=== PATIENT | female | born 1985 | race Caucasian/White ===

== ENCOUNTER 2020-06-11 20:45 | Emergency (ER) | payer OTHER, SELFPAY ==
[2020-06-11 21:32] VITALS: BP 112/54; PULSE 89; RESP 16; TEMP 37; O2SAT 98; BMI 19.5
--- NOTE | 2020-06-11 21:33 | ED.EAR ---
HPI - Ear Problem General Chief complaint: Ear Problems Stated complaint: EAR INFECTION Source: patient Mode of arrival: ambulatory Limitations: no limitations History of Present Illness HPI Narrative: 35-year-old female with no significant past medical history presents with sudden onset of left ear pain. Stated that she was at work, noted that her left ear kept popping, when she went home she tried irrigate her ear out and clean it out with a Q-tip. She does not describe any fevers, chills, sore throat, rhinorrhea, cough, chest pain or pressure, palpitations, shortness of breath, abdominal pain, abdominal tender, dysuria, hematuria, nausea, vomiting, diarrhea, constipation, or edema. MD Complaint: ear pain Location: left ear Duration: intermittent Severity: mild Relieving factors: nothing Discharge from ear: no Treatment prior to arrival: attempt at ear wax removal Related Data Allergies Allergy/AdvReac Type Severity Reaction Status Date / Time aloe Allergy Hives Verified 06/11/20 21:32 latex Allergy Rash Verified 06/11/20 21:32 Review of Systems Review of Systems: Constitutional: No Fever, No Chills ENT/Mouth: Positive left Ear Pain, No Hoarseness, No sore throat Eyes: No Eye Pain, No Swelling, No Redness, No Foreign Body Cardiovascular: No Chest Pain, No SOB Respiratory: No Cough, No Dyspnea Gastrointestinal: No Nausea, No Vomiting, No Diarrhea, No abdominal Pain Genitourinary: No Dysuria, No Hematuria Musculoskeletal: No joint pain, No Myalgias, No Joint Swelling Skin: No Skin lacerations, No rash Neuro: No Weakness, No Numbness, No Paresthesias, No Loss of Consciousness, No Dizziness, No Headache Psych: No Anxiety/Panic, No Depression Heme/Lymph: no easy bruising, no Lymphadenopathy Endocrine: No Polyuria, No Polydipsia Yes all other systems are reviewed and are negative [facility] Past Medical History Attestation statement: The following information was validated with the patient. Source: old records reviewed Medical History Cervical cancer Surgical History H/O tubal ligation Social History Social History Advance Directives: No Advance Directives Information Provided: Yes Physical Exam Vital Signs: Vital Signs: Last Vital Signs Temp 98.6 F 06/11/20 21:32 Pulse 89 06/11/20 21:32 Resp 16 06/11/20 21:32 BP 112/54 L 06/11/20 21:32 Pulse Ox 98 06/11/20 21:32 Body Mass Index 19.5 Appearance: Alert. Oriented X3. No acute distress. Eyes: Pupils equal, round and reactive to light. ENT: Pharynx normal. No tonsillar erythema or swelling noted. Bilateral tympanic membranes intact, no bulging or effusions noted. Neck: Normal inspection. Neck supple. CVS: Normal heart rate and rhythm. Pulses normal. Respiratory: No respiratory distress. Breath sounds normal. Abdomen: Soft and nontender. Skin: Skin warm and dry. Normal skin color. Normal skin turgor. Extremities: No lower extremity edema. Neuro: No motor deficit. No sensory deficit. Course Course Course Narrative: 35-year-old female presents with left ear pain. Tympanic membranes are normal, no pharyngeal findings. Will test for strep. Strep test is negative. Plan of care is to discharge home with Motrin. Detailed description with patient regarding antibiotic stewardship, and that she does not require antibiotics at this time. Patient disappointed but understands rationale. MDM - Ear Differential Diagnosis Differential diagnosis: Likely otitis externa, otitis media, foreign body in ear, ruptured TM and cerumen impaction Medical Records Attestation: I reviewed the patient's medical records. Discharge Plan Discharge Clinical Impression: Acute dysfunction of eustachian tube Patient Disposition: Home, Self-Care Instructions: Earache (ED) Additional Instructions: You were evaluated for left ear pain. Visual exam was normal, your strep test was negative. Please use Motrin as needed for pain management. Symptoms persist please follow-up with primary care physician for further evaluation. Thank you for choosing this emergency department for evaluation. Please follow-up with primary care physician as needed. Return to the emergency department for any new, concerning, or worsening symptoms. Interventions: ED Discharge Assessment Last Done: 06/11/20 23:29 Discharge Date/Time: 06/11/20 23:31
[2020-06-11] MEDS: Ibuprofen 600 MG TABLET PO (23:26)
== END 2020-06-11 23:31 | disposition home or self-care (01) ==
PROVIDERS: Emergency Provider Internal Medicine
DX: H69.92 Unspecified Eustachian tube disorder, left ear (principal); Z85.41 Personal history of malignant neoplasm of cervix uteri
CPT/HCPCS: 87071; 87880; 99283; 99284

== ENCOUNTER 2020-06-16 13:34 | Emergency (ER) | payer OTHER, SELFPAY ==
[2020-06-16 13:48] VITALS: BP 100/57; PULSE 78; RESP 18; TEMP 36.6; O2SAT 99; BMI 19.2
--- NOTE | 2020-06-16 14:05 | ED_ITS ---
HPI - Ear Problem General Chief complaint: Ear Problems Stated complaint: ear issues Time Seen by Provider: 06/16/20 14:04 Source: patient Mode of arrival: ambulatory Limitations: no limitations History of Present Illness HPI Narrative: Left ear pain ongoing for past 1 week felt like fullness for the past 1 week and today felt a pressure-like sensation throughout the day. States he has had this problem before a week ago she was in emergency room there was no infection she was given supportive care however symptoms continued. There is no fever rash or headache. No recent illness. MD Complaint: ear pain Location: left ear Duration: constant Severity: moderate Relieving factors: NDAIDs Exacerbating factors: nothing Discharge from ear: no Treatment prior to arrival: none Related Data Previous Rx's Medication Instructions Recorded amoxicillin 500 mg PO Q12H #20 tab 06/16/20 Allergies Allergy/AdvReac Type Severity Reaction Status Date / Time aloe Allergy Hives Verified 06/11/20 21:32 latex Allergy Rash Verified 06/11/20 21:32 Review of Systems Review of Systems: Constitutional: No Weight loss, No Fever, No Chills, No Night Sweats, No Fatigue, No Malaise ENT/Mouth: No Hearing loss, + Ear Pain, No Nasal Congestion, No Sinus Pain, No Hoarseness, No sore throat, No Rhinorrhea, No Swallowing Difficulty Eyes: No Eye Pain, No Swelling, No Redness, No Foreign Body, No Discharge, No Vision Changes Cardiovascular: No Chest Pain, No SOB, No Dyspnea on Exertion, No Orthopnea, No Edema, No Palpitations Respiratory: No Cough, No Sputum, No Wheezing, No Smoke Exposure, No Dyspnea Gastrointestinal: Negative Genitourinary:Neg Musculoskeletal: No joint pain, No Myalgias, No Joint Swelling Skin: No Skin Lesions, No rash Neuro: No Weakness, No Numbness, No Paresthesias, No Loss of Consciousness, No Dizziness, No Headache Psych: Negative Heme/Lymph: No Bruising, No Bleeding,No Lymphadenopathy Endocrine: No Polyuria, No Polydipsia, No Temperature Intolerance PMFSH Past Medical History Source: unable to obtain Medical History Cervical cancer Surgical History H/O tubal ligation Social History Social History Advance Directives: No Advance Directives Information Provided: Yes Physical Exam Vital Signs: Vital Signs: Last Vital Signs Temp 97.9 F 06/16/20 13:48 Pulse 78 06/16/20 13:48 Resp 18 06/16/20 13:48 BP 100/57 L 06/16/20 13:48 Pulse Ox 99 06/16/20 13:48 Body Mass Index 19.2 Reviewed Const: General: cooperative and healthy appearing; No acute distress or intoxicated appearing Nutritional Appearance: average body habitus Orientation/consciousness: patient oriented x3 HENMT: Head: Yes normal to inspection Ears: hearing grossly normal bilaterally and TM abnormal bulging, wth effusion, with fluid behind the TM, with loss of landmarks and other (No abnormality in the canal); not perforated General nose exam: Normal external nose present Eyes: General: appearance normal, both eyes and all related structures Visual Summers: normal visual summers by confrontation Neck: Neck: Yes normal visual inspection, No positive Brudzinski's sign, No positive Kernig's sign and No tender Thyroid: Thyroid normal Chest: Chest palpation & inspection: normal inspection of the chest Resp: Effort & Inspection: normal respiratory effort Cardio: Jugular venous distension: no JVD Skin: General skin exam: no rashes or lesions noted Neuro: General: patient oriented x3 Extrem: General: Yes normal to inspection Course Course Course Narrative: Well nontoxic appearing AP acute otitis media of the left ear. Start on amoxicillin, home care come return, follow instructions and precautions clear provided. Feels comfortable plan. Stable for discharge. Discharge Plan Discharge Clinical Impression: Otitis media Qualifiers: Otitis media type: serous Chronicity: acute Laterality: right Recurrence: non- recurrent Qualified Code(s): H65.01 - Acute serous otitis media, right ear Patient Disposition: Home, Self-Care Instructions: Ear Infection (ED) Additional Instructions: Take your medications as prescribed [id number] decongestants as discussed Return if any concerns or worse symptoms otherwise at the completion of your course of antibiotics follow-up with her primary doctor for recheck Thank you Prescriptions: New amoxicillin 500 mg tablet 500 mg PO Q12H Qty: 20 RF: 0 Referrals: Physician,Unknown [Primary Care Provider] - 1 week
== END 2020-06-16 14:25 | disposition home or self-care (01) ==
PROVIDERS: Emergency Provider Emergency Medicine
DX: H65.02 Acute serous otitis media, left ear (principal)
CPT/HCPCS: 99283

== ENCOUNTER 2021-02-14 12:41 | Emergency (ER) | payer OTHER, SELFPAY ==
--- NOTE | 2021-02-14 13:44 | ED.URI ---
HPI - URI/Sore Throat General Chief Complaint: Upper Respiratory Symptoms Stated Complaint: Body aches/fever/cough Time Seen by Provider: 02/14/21 13:43 Source: patient Mode of arrival: ambulatory Limitations: no limitations History of Present Illness HPI Narrative: 36 year old female past medical history significant for fibromyalgia presents to the emergency department with headache, subjective fevers and chills, cough, congestion, body aches, fatigue X 3 days. Patient tells me that last night her fever broke, and she has been improving ever since. Patient is not vaccinated against COVID. She socially smokes cigarettes, and smokes marijuana. Few people at her job are sick with COVID-19. Patient denies chest pain and shortness of breath. MD elicited complaint: fever, cough and nasal congestion Onset (ago): day(s) (3) Consistency: constant Severity: mild Able to tolerate fluids by mouth: Yes Exacerbating factors: nothing Relieving factors: nothing Context: sick contacts (Multiple sick contacts at work, fiance has had multiple sick contacts.) Associated symptoms: fever, chills, nasal congestion and cough Treatments prior to arrival: none Related Data Previous Rx's Medication Instructions Recorded amoxicillin 500 mg tablet 500 mg PO Q12H #20 tab 06/16/20 Allergies Allergy/AdvReac Type Severity Reaction Status Date / Time aloe Allergy Hives Verified 02/14/21 13:55 latex Allergy Rash Verified 02/14/21 13:55 Review of Systems Review of Systems: Constitutional : positive Fever, positive Chills, positive fatigue, positive Malaise ENT/Mouth : No sore throat, positive runny nose Eyes: No Discharge Cardiovascular : No Chest Pain, No SOB Respiratory : No Cough, No Sputum Gastrointestinal : No Nausea, No Vomiting, No Diarrhea Genitourinary : No Dysuria, No Urinary Frequency Musculoskeletal : positive Myalgia Skin : No rash Neuro : No Headache Yes all other systems are reviewed and are negative [facility] Past Medical History Attestation statement: The following information was validated with the patient. Source: old records reviewed and nursing notes reviewed Medical History Cervical cancer Surgical History H/O tubal ligation Social History Social History Patient : No Physical Exam Vital Signs: Vital Signs: Last Vital Signs Temp 98.0 F 02/14/21 13:55 Pulse 85 02/14/21 13:55 Resp 18 02/14/21 13:55 BP 99/55 L 02/14/21 13:55 Pulse Ox 99 02/14/21 13:55 BMI result Body Mass Index 21.9 Vital signs stable. Appearance: Alert.? Oriented X3.? No acute distress.? Head: Normocephalic, atraumatic, no step-offs or deformities Eyes: Pupils equal, round and reactive to light.? ENT: Pharynx normal.? Moist mucous membranes Neck: Normal inspection.? Neck supple.? CVS: Normal heart rate and rhythm.? Pulses normal.? Respiratory: No respiratory distress.? Breath sounds normal.? Abdomen: Soft and nontender.? Skin: Skin warm and dry.? Normal skin color.? Normal skin turgor.? Extremities: No lower extremity edema.? No calf ttp. 5/5 strength to bilateral upper and lower extremities Back: No midline tenderness, no C-spine tenderness, full range of motion, no CVA tenderness bilaterally Neuro: Oriented X 3.? No motor deficit.? No sensory deficit. Course Reevaluation(s) Reevaluation #1: Patient is COVID positive. Vital signs are stable. I feel comfortable discharge home. I have educated on proper quarantine I have given strict return precautions. I have advised her to follow-up with PCP or return with new or worsening symptoms. Time: 13:53 MDM - URI/Sore Throat MDM Narrative Medical decision making narrative: 1352 36 yo f pmhx fibromyalgia presents to the emergency department with headache, subjective fevers and chills, cough, congestion, body aches, fatigue X 3 days. Patient is not vaccinated against COVID-19. She smokes socially but smokes marijuana daily. Physical examination benign Plan at this time is to obtain a COVID test. Medical Records Attestation: I reviewed the patient's medical records. Lab Data Attestation: I reviewed the patient's lab results. Labs: Lab Results 02/14/21 Range/Units 13:18 COVID-19 ([facility]) Positive A (Negative) COVID-19 Clin Com See Note Critical Care Time Critical Care Time Critical Care Time: No Discharge Plan Discharge Clinical Impression: COVID-19 Patient Disposition: Home, Self-Care Instructions: COVID-19 (Coronavirus Disease 2019) (ED) Additional Instructions: Take your medications as prescribed. If you were prescribed antibiotics today, it is important that you take your medication to their entirety, do not skip any doses, do not finish them early. Today you tested positive for COVID-19. Take Ibuprofen or Tylenol as needed for fevers or body aches. Quarantine for 7 days and ensure you wear a mask. After 7 days you should wear a mask for 3 days after that. Practice social distancing and good hand hygiene. Drink plenty of fluids. Take ibuprofen every 6 hours, Tylenol every 4 hours as needed for fevers or body aches. Follow-up with your primary care provider this week. Return to the emergency department with new or worsening symptoms. In case of emergency call 911 You can purchase a pulse oximeter from your local pharmacy or grocery store, and monitor your oxygen saturation if it goes below 94% you should return to the emergency department for further evaluation. Prescriptions: No Action amoxicillin 500 mg tablet 500 mg PO Q12H Qty: 20 RF: 0 Referrals: Physician,Unknown J [Primary Care Provider] - 2 days Stand Alone Forms: Work/School Release
[2021-02-14 13:55] VITALS: BP 99/55; PULSE 85; RESP 18; TEMP 36.7; O2SAT 99; BMI 21.9
[2021-02-18 08:40] LABS: COVID-19 Test Positive (Negative)
== END 2021-02-14 16:02 | disposition home or self-care (01) ==
LOC: HO.ED 14:12
PROVIDERS: Emergency Provider Emergency Medicine
DX: U07.1 COVID-19 (principal)
CPT/HCPCS: 36415; 87635; 99282; 99283

== ENCOUNTER 2022-03-03 09:27 | Emergency (ER) | payer OTHER, SELFPAY ==
[2022-03-03 10:22] VITALS: BP 94/60; PULSE 94; RESP 18; TEMP 37.3; O2SAT 99; BMI 25.6
[2022-03-03 11:26] LABS: Influenza A PCR NEGATIVE (Negative); Influenza B PCR NEGATIVE (Negative); Resp Syncy Virus RNA Qual PCR NEGATIVE (Negative); SARS COV2 PCR INHOUSE POSITIVE (Negative)
--- NOTE | 2022-03-03 11:33 | ED_ITS ---
HPI - General Adult General Chief complaint: General Medical Stated complaint: Body aches/Weakness/Covid+? Time Seen by Provider: 03/03/22 11:32 Source: patient Mode of arrival: ambulatory Limitations: no limitations History of Present Illness HPI narrative: Patient is a 37 year old assigned female at with no reported medical history presenting to the emergency department today with body aches and a known COVID-19 exposure. Patient states that her boyfriend is COVID-19 positive and she is having body aches now. Patient denies any dizziness, lightheadedness, abdominal pain, nausea, vomiting, fever, chills, blurry vision, double vision, loss of vision, chest pain, difficulty breathing, shortness of breath, back pain, night sweats, pain with urination, increased urinary frequency, increased urinary urgency, blood in her urine or stool, syncope or a near syncopal episode, recent trauma or falls, bowel incontinence, bladder incontinence, bowel retention, bladder retention, or any other complaints at this time. Onset (ago): day(s) Severity: mild Severity scale (1-10): 2 Relieving factors: none Exacerbating factors: none Treatments prior to arrival: none Related Data Previous Rx's Medication Instructions Recorded amoxicillin 500 mg tablet 500 mg PO Q12H #20 tabs 06/16/20 ibuprofen 600 mg tablet 600 mg PO Q8H PRN pain #20 tabs 02/15/21 ibuprofen 800 mg tablet 800 mg PO Q8H #30 tabs 03/03/22 Allergies Allergy/AdvReac Type Severity Reaction Status Date / Time latex Allergy Intermediate Rash Verified 03/03/22 10:21 aloe Allergy Mild Hives Verified 03/03/22 10:21 Review of Systems Constitutional: Constitutional: Reports no additional constitutional complaints, Reports body ache(s), Denies chills, Denies fever(s) and Denies night sweats Eyes: Eyes: Reports no additional eye complaints, Denies blurry vision, Denies change in vision, Denies diplopia, Denies eye discharge, Denies loss of vision and Denies eye pain ENT: Denies dizziness Cardiovascular: Cardiovascular: Reports no additional cardiovascular complaints, Denies chest pain, Denies lightheadedness, Denies Loss of Consciousness and Denies dyspnea Respiratory: Respiratory: Reports no additional respiratory complaints and Denies dyspnea Gastrointestinal: Gastrointestinal: Reports no additional gastrointestinal complaints, Denies abdominal pain, Denies melena, Denies hematochezia, Denies change in bowel habits and Denies change in stool character Genitourinary: Genitourinary: Denies hematuria, Denies urinary frequency, Denies dysuria, Denies urinary incontinence, Denies urinary hesitancy and Denies urinary urgency Musculoskeletal: Musculoskeletal: Reports no additional musculoskeletal complaints, Denies numbness and Denies tingling Neurologic: Denies dizziness, Denies loss of vision, Denies numbness and Denies tingling Psychiatric: Psychiatric: Reports no additional psychiatric complaints Endocrine: Endocrine: Reports no additional endocrine complaints Hematologic/Lymphatic: Hematologic/Lymphatic: Reports no additional hematologic/lymphatic complaints Allergic/Immunologic: Allergic/Immunologic: Reports no additional allergic/immunologic complaints [facility] Past Medical History Attestation statement: The following information was validated with the patient. Source: old records reviewed and nursing notes reviewed Medical History Cervical cancer Surgical History H/O tubal ligation Social History Social History Alcohol intake: current Alcohol intake frequency: holidays/special occasions only Smoked in Last 30 Days: No Advance Directives: No Advance Directives Information Provided: No Patient : No Physical Exam ED Vital Signs: Vital Signs - 24 hr 03/03/22 10:22 03/03/22 11:52 Temperature 99.2 F 98.9 F Pulse Rate 94 90 Respiratory Rate 18 18 Blood Pressure 94/60 100/58 L Pulse Oximetry 99 99 Oxygen Delivery Method Room Air BMI result Body Mass Index 25.6 Const General: cooperative, no acute distress, alert and awake Nutritional Appearance: well nourished Orientation/consciousness: patient oriented x3 Limitations: no limitations HENMT Head: Yes normal to inspection and Yes atraumatic Ears: hearing grossly normal bilaterally and external ears normal General nose exam: Normal external nose present, no nasal discharge noted and no epistaxis Face and sinus: Yes normal facial exam, No abrasion and No laceration Mouth: Normal oral and palatal mucosa present, no drooling and no muffled voice Eyes General: appearance normal, both eyes and all related structures Periorbital: periorbital findings normal Eyelids: Yes eyelids normal Conjunctivae: conjunctivae normal Pupils: Equal, round and reactive pupils present EOM: EOMs intact bilaterally Neck Neck: Yes normal visual inspection, Yes full ROM and Yes no lymphadenopathy Chest Chest palpation & inspection: normal inspection of the chest Resp Effort & Inspection: normal respiratory effort and able to speak in complete sentences Auscultation: clear to auscultation bilaterally Cardio Rate: regular rate Rhythm: regular rhythm GI Inspection: Yes normal to inspection Palpation (GI): Soft to palpation, not firm, nontender, no guarding and not rigid Neuro General: patient oriented x3 and moves all extremities Cranial nerves: Yes Equal, round and reactive pupils present Cognition (Neuro): normal cognition Motor exam (neuro): 5/5 motor strength present throughout Sensory Exam: Normal double simultaneous stimulation for sensation Coordination: [id number] test normal Extrem General: Yes normal to inspection, Yes full ROM and Yes capillary refill normal Psych Appearance: grossly normal Mental Status: mental status grossly normal Affect: normal affect Attitude: cooperative Thought process: Normal thought process present Thought content: Normal thought content present Insight: Good insight present (Psych) Medical Decision Making Medical Decision Making [facility] Narrative: Patient is a 37 year old assigned female at with no reported medical history presenting to the emergency department today with body aches. Patient's physical exam was unremarkable. Patient's COVID-19 test was positive. I explained my physical exam findings as well as all test results to the patient. I answered all questions asked by the patient. I stressed the importance of the patient taking her medication as prescribed. I stressed the importance of the patient following up with her primary care provider. I stressed the importance of the patient returning to the emergency department immediately if her symptoms were to worsen or if she were to develop any dizziness, shortness of breath, difficulty breathing, chest pain, blurry vision, loss of vision, nausea, vomiting, abdominal pain, fever, chills, back pain, or any other complaints. Patient verbalized agreement and understanding with this treatment plan and discharge. Differential Diagnosis Differential Diagnoses: The differential diagnosis associated with the presentation includes COVID-19 Lab Data [facility] Lab Attestation statement: I reviewed the patient's lab results. Labs: Lab Results 03/03/22 Range/Units 10:37 Influenza Type A (PCR) NEGATIVE (Negative) Influenza Type B (PCR) NEGATIVE (Negative) RSV RNA Qual (PCR) NEGATIVE (Negative) SARS-CoV-2 RNA (RT-PCR) POSITIVE A (Negative) Discharge Plan Discharge Clinical Impression: COVID-19 Patient Disposition: Home, Self-Care Instructions: COVID-19 (Coronavirus Disease 2019) (ED) Additional Instructions: Follow up with your primary care provider. Return to the emergency department immediately if your symptoms worsen or if you develop any dizziness, shortness of breath, difficulty breathing, chest pain, blurry vision, loss of vision, nausea, vomiting, abdominal pain, fever, chills, back pain, or any other complaints. Prescriptions: New ibuprofen 800 mg tablet 800 mg PO Q8H Qty: 30 0RF No Action amoxicillin 500 mg tablet 500 mg PO Q12H Qty: 20 0RF ibuprofen 600 mg tablet 600 mg PO Q8H PRN (Reason: pain) Qty: 20 0RF Referrals: [facility] [place] Family Medicine [Provider Group] (Call to establish and follow up with a primary care provider. If you already have a primary care provider, please follow up with them. ) [facility] [place] Primary CareE[facility] [Provider Group] (Call to establish and follow up with a primary care provider. If you already have a primary care provider, please follow up with them. ) [facility] [place] Primary Care,[facility] [Provider Group] (Call to establish and follow up with a primary care provider. If you already have a primary care provider, please follow up with them. ) Stand Alone Forms: Work/School Release Interventions: ED Discharge Assessment Last Done: 03/03/22 11:55 Discharge Date/Time: 03/03/22 11:55 Print Language: Amharic
[2022-03-03 11:52] VITALS: BP 100/58; PULSE 90; RESP 18; TEMP 37.2; O2SAT 99
== END 2022-03-03 11:55 | disposition home or self-care (01) ==
PROVIDERS: Emergency Provider Emergency Medicine
DX: U07.1 COVID-19 (principal); M79.10 Myalgia, unspecified site
CPT/HCPCS: 0241U; 99283; 99284

== ENCOUNTER 2022-11-21 07:39 | Emergency (ER) | payer OTHER, SELFPAY ==
[2022-11-21 07:55] VITALS: BP 103/35; BP 112/62; PULSE 81; PULSE 90; RESP 18; TEMP 37.4; O2SAT 98; O2SAT 99; BMI 24.8
--- NOTE | 2022-11-21 08:04 | ED.GENADULT ---
HPI - General Adult General Chief complaint: General Medical Stated complaint: FLU LIKE SYMPTOMS Time Seen by Provider: 11/21/22 08:04 Source: patient and EMS Mode of arrival: EMS Limitations: no limitations History of Present Illness HPI narrative: Patient is a 37 year old assigned female at with a history of cervical cancer presenting to the emergency department today with nausea and vomiting. Patient states that over the last day she has had nausea, vomiting, and feeling generally unwell. Patient denies any dizziness, lightheadedness, abdominal pain, fever, chills, blurry vision, double vision, loss of vision, chest pain, difficulty breathing, shortness of breath, back pain, night sweats, pain with urination, increased urinary frequency, increased urinary urgency, blood in her urine or stool, syncope or a near syncopal episode, recent trauma or falls, bowel incontinence, bladder incontinence, bowel retention, bladder retention, or any other complaints at this time. Onset (ago): day(s) (1) Severity: mild Severity scale (1-10): 3 Relieving factors: none Exacerbating factors: none Associated symptoms: nausea/vomiting Treatments prior to arrival: none Related Data Previous Rx's Medication Instructions Recorded amoxicillin 500 mg tablet 500 mg PO Q12H #20 tabs 06/16/20 ibuprofen 600 mg tablet 600 mg PO Q8H PRN pain #20 tabs 02/15/21 ibuprofen 800 mg tablet 800 mg PO Q8H #30 tabs 03/03/22 ondansetron 4 mg disintegrating 4 mg PO Q8H 3 days #9 tabs 11/21/22 tablet Allergies Allergy/AdvReac Type Severity Reaction Status Date / Time latex Allergy Intermediate Rash Verified 03/03/22 10:21 aloe Allergy Mild Hives Verified 03/03/22 10:21 Review of Systems Constitutional: Constitutional: Reports no additional constitutional complaints, Denies chills, Denies fever(s) and Denies night sweats Eyes: Eyes: Reports no additional eye complaints, Denies blurry vision, Denies change in vision, Denies diplopia, Denies eye discharge, Denies loss of vision and Denies eye pain ENT: Denies dizziness Cardiovascular: Cardiovascular: Reports no additional cardiovascular complaints, Denies chest pain, Denies lightheadedness, Denies Loss of Consciousness and Denies dyspnea Respiratory: Respiratory: Reports no additional respiratory complaints and Denies dyspnea Gastrointestinal: Gastrointestinal: Reports no additional gastrointestinal complaints, Denies abdominal pain, Denies melena, Denies hematochezia, Denies change in bowel habits, Denies change in stool character, Reports nausea and Reports vomiting Genitourinary: Genitourinary: Denies hematuria, Denies urinary frequency, Denies dysuria, Denies urinary incontinence, Denies urinary hesitancy and Denies urinary urgency Musculoskeletal: Musculoskeletal: Reports no additional musculoskeletal complaints, Denies numbness and Denies tingling Neurologic: Denies dizziness, Denies loss of vision, Denies numbness and Denies tingling Psychiatric: Psychiatric: Reports no additional psychiatric complaints Endocrine: Endocrine: Reports no additional endocrine complaints Hematologic/Lymphatic: Hematologic/Lymphatic: Reports no additional hematologic/lymphatic complaints Allergic/Immunologic: Allergic/Immunologic: Reports no additional allergic/immunologic complaints PMFSH Past Medical History Attestation statement: The following information was validated with the patient. Source: old records reviewed and nursing notes reviewed Medical History COVID-19 Acute dysfunction of eustachian tube Cervical cancer Surgical History H/O tubal ligation Social History Social History Alcohol intake: current Alcohol intake frequency: holidays/special occasions only Smoked in Last 30 Days: Yes Use of substances other than those prescribed or required for medical reasons: Yes Substance Use Type: Marijuana Advance Directives: No Physical Exam ED Vital Signs: Vital Signs - 24 hr 11/21/22 07:55 11/21/22 10:48 Temperature 99.3 F Pulse Rate 81 85 Respiratory Rate 18 18 Blood Pressure 103/35 L 103/43 L Pulse Oximetry 98 100 Oxygen Delivery Method Room Air Room Air BMI result Body Mass Index 24.8 Const General: cooperative, no acute distress, alert and awake Nutritional Appearance: well nourished Orientation/consciousness: patient oriented x3 Limitations: no limitations HENMT Head: Yes normal to inspection and Yes atraumatic Ears: hearing grossly normal bilaterally and external ears normal General nose exam: Normal external nose present, no nasal discharge noted and no epistaxis Face and sinus: Yes normal facial exam, No abrasion and No laceration Mouth: Normal oral and palatal mucosa present, no drooling and no muffled voice Eyes General: appearance normal, both eyes and all related structures Periorbital: periorbital findings normal Eyelids: Yes eyelids normal Conjunctivae: conjunctivae normal Pupils: Equal, round and reactive pupils present EOM: EOMs intact bilaterally Neck Neck: Yes normal visual inspection, Yes full ROM and Yes no lymphadenopathy Chest Chest palpation & inspection: normal inspection of the chest Resp Effort & Inspection: normal respiratory effort and able to speak in complete sentences Auscultation: clear to auscultation bilaterally Cardio Rate: regular rate Rhythm: regular rhythm GI Inspection: Yes normal to inspection Palpation (GI): Soft to palpation, not firm, nontender and no guarding Neuro General: patient oriented x3 and moves all extremities Cranial nerves: Yes Equal, round and reactive pupils present Cognition (Neuro): normal cognition Motor exam (neuro): 5/5 motor strength present throughout Sensory Exam: Normal double simultaneous stimulation for sensation Coordination: [id number] test normal Extrem General: Yes normal to inspection, Yes full ROM and Yes capillary refill normal Psych Appearance: grossly normal Mental Status: mental status grossly normal Affect: normal affect Attitude: cooperative Thought process: Normal thought process present Thought content: Normal thought content present Insight: Good insight present (Psych) Medications Administered Discontinued Medications Generic Name Dose Route Start Last Admin Trade Name Angie PRN Reason Stop Dose Admin Sodium Chloride 1,000 mls @ 999 mls/hr 11/21/22 08:30 11/21/22 10:55 Ns IV 11/21/22 09:30 Infused .Q1H1M SHARRON Infusion Ondansetron HCl 4 mg 11/21/22 08:31 11/21/22 09:54 Ondansetron Hcl 4 Mg/2 Ml Vial IVPUSH 11/21/22 08:32 4 mg ONCE ONE Administration Medical Decision Making Medical Decision Making [facility] Narrative: Patient is a 37 year old assigned female at with a history of cervical cancer presenting to the emergency department today with nausea and vomiting. Patient's physical exam was unremarkable. Patient's blood work was unremarkable. Patient's urine showed no acute process. I explained my physical exam findings as well as all test results to the patient. I answered all questions asked by the patient. Patient received IV fluids and Zofran which she stated helped her symptoms significantly. I stressed the importance of the patient taking her medication as prescribed. I stressed the importance of the patient following up with her primary care provider. I stressed the importance of the patient returning to the emergency department immediately if her symptoms were to worsen or if she were to develop any dizziness, shortness of breath, difficulty breathing, chest pain, blurry vision, loss of vision, nausea, vomiting, abdominal pain, fever, chills, back pain, or any other complaints. Patient verbalized agreement and understanding with this treatment plan and discharge. Differential Diagnosis Differential Diagnoses: The differential diagnosis associated with the presentation includes Nausea Vomiting COVID-19 Influenza RSV Viral illness Admission/Observation Consideration of admission/observation: Escalation of care including admission/observation considered Patient would have been admitted to the hospital had her work up had any findings where hospital admission was appropriate and her clinical presentation warranted hospital admission. Lab Data MDM Lab Attestation statement: I reviewed the patient's lab results. My interpretation of these studies and their corresponding values is that they are grossly normal. 11/21/22 08:57 11/21/22 08:58 Labs: Lab Results 11/21/22 11/21/22 11/21/22 Range/Units 08:57 08:58 09:03 WBC 7.6 (4.8-10.8) X10*3/uL RBC 4.28 (4.20-5.50) X10*6/uL Hgb 12.3 (12.0-16.0) g/dl Hct 36.4 L (37.0-47.0) % MCV 85.0 (80.0-98.0) fL MCH 28.7 (27.0-33.0) pg MCHC 33.8 (31.0-35.0) g/dl RDW 13.4 (11.0-16.0) % Plt Count 185 (160-400) X10*3/uL MPV 11.0 (9.4-12.3) fL Immature Gran % (Auto) 0.3 (0.0-0.4) % Neut % (Auto) 77.6 H (45-73) % Lymph % (Auto) 15.9 L (20-40) % [place] % (Auto) 5.9 (2-11) % Eos % (Auto) 0.0 (0-4) % Baso % (Auto) 0.3 (0-2) % Lymph # (Auto) 1.2 (1.2-4.9) X10*3/uL [place] # (Auto) 0.5 (0.1-1.2) X10*3/uL Eos # (Auto) 0.0 (0.0-0.4) X10*3/uL Baso # (Auto) 0.0 (0.0-0.2) X10*3/uL Abs Immat Gran (auto) 0.02 (0.00-0.03) X10*3/uL Absolute Neuts (auto) 5.9 (2.0-8.3) x10*3/uL Absolute Nucleated RBC 0.000 (0.0-0.012) X10*3/uL Nucleated RBC % (auto) 0.0 (0.0-0.2) /100WBC Sodium 140 (135-145) mmol/L Potassium 3.7 (3.3-5.1) mmol/L Chloride 111 H (96-108) mmol/L Carbon Dioxide 19 L (22-29) mmol/L Anion Gap 14 (12-20) BUN 11 (9-16) mg/dL Creatinine 0.72 (0.5-1.4) mg/dL Estim Creat Clear Calc 91.4 Estimated GFR > 60 Random Glucose 87 (60-115) mg/dL Calcium 9.3 (8.4-10.2) mg/dL Total Bilirubin 1.8 H (0.0-1.0) mg/dL AST 12 (5-31) U/L ALT 9 (0-31) U/L Alkaline Phosphatase 49 (39-117) U/L Total Protein 6.9 (6.5-8.0) g/dL Albumin 4.3 (3.5-5.0) g/dL Beta HCG, Quant < 2 mIU/mL Urine Color Urine Appearance Urine pH (5.0-9.0) Ur Specific [place] (1.005-1.025) Urine Protein (Neg-Trace) mg/dL Urine Glucose (UA) (Negative) mg/dL Urine Ketones (Negative) mg/dL Urine Blood (Negative) Urine Nitrite (Negative) Ur Leukocyte Esterase (Negative) Urine RBC (0-2) /HPF Urine WBC (0-5) /HPF Ur Squamous Epith Cells (0-2) /HPF Urine Bacteria (None Seen) Hyaline Casts (0-2) /LPF Influenza Type A (PCR) NEGATIVE (Negative) Influenza Type B (PCR) NEGATIVE (Negative) RSV RNA Qual (PCR) NEGATIVE (Negative) SARS-CoV-2 RNA (RT-PCR) NEGATIVE (Negative) S. pyogenes GrpA BASSAM Negative (Negative) 11/21/22 Range/Units 10:51 WBC (4.8-10.8) X10*3/uL RBC (4.20-5.50) X10*6/uL Hgb (12.0-16.0) g/dl Hct (37.0-47.0) % MCV (80.0-98.0) fL MCH (27.0-33.0) pg MCHC (31.0-35.0) g/dl RDW (11.0-16.0) % Plt Count (160-400) X10*3/uL MPV (9.4-12.3) fL Immature Gran % (Auto) (0.0-0.4) % Neut % (Auto) (45-73) % Lymph % (Auto) (20-40) % [place] % (Auto) (2-11) % Eos % (Auto) (0-4) % Baso % (Auto) (0-2) % Lymph # (Auto) (1.2-4.9) X10*3/uL [place] # (Auto) (0.1-1.2) X10*3/uL Eos # (Auto) (0.0-0.4) X10*3/uL Baso # (Auto) (0.0-0.2) X10*3/uL Abs Immat Gran (auto) (0.00-0.03) X10*3/uL Absolute Neuts (auto) (2.0-8.3) x10*3/uL Absolute Nucleated RBC (0.0-0.012) X10*3/uL Nucleated RBC % (auto) (0.0-0.2) /100WBC Sodium (135-145) mmol/L Potassium (3.3-5.1) mmol/L Chloride (96-108) mmol/L Carbon Dioxide (22-29) mmol/L Anion Gap (12-20) BUN (9-16) mg/dL Creatinine (0.5-1.4) mg/dL Estim Creat Clear Calc Estimated GFR Random Glucose (60-115) mg/dL Calcium (8.4-10.2) mg/dL Total Bilirubin (0.0-1.0) mg/dL AST (5-31) U/L ALT (0-31) U/L Alkaline Phosphatase (39-117) U/L Total Protein (6.5-8.0) g/dL Albumin (3.5-5.0) g/dL Beta HCG, Quant mIU/mL Urine Color Yellow Urine Appearance Clear Urine pH 5.5 (5.0-9.0) Ur Specific [place] 1.025 (1.005-1.025) Urine Protein Trace (Neg-Trace) mg/dL Urine Glucose (UA) Negative (Negative) mg/dL Urine Ketones >=160 (Negative) mg/dL Urine Blood Negative (Negative) Urine Nitrite Negative (Negative) Ur Leukocyte Esterase Trace H (Negative) Urine RBC 0-2 (0-2) /HPF Urine WBC 0-5 (0-5) /HPF Ur Squamous Epith Cells 6-10 (0-2) /HPF Urine Bacteria None Seen (None Seen) Hyaline Casts 0-2 (0-2) /LPF Influenza Type A (PCR) (Negative) Influenza Type B (PCR) (Negative) RSV RNA Qual (PCR) (Negative) SARS-CoV-2 RNA (RT-PCR) (Negative) S. pyogenes GrpA BASSAM (Negative) Prescription Management I considered prescription management with: Other (patient prescribed an anti-emetic.) Discharge Plan Discharge Clinical Impression: Nausea & vomiting, Viral illness Patient Disposition: Home, Self-Care Instructions: Acute Nausea and Vomiting (ED), Viral Syndrome (ED) Additional Instructions: Follow up with your primary care provider. Return to the emergency department immediately if your symptoms worsen or if you develop any dizziness, shortness of breath, difficulty breathing, chest pain, blurry vision, loss of vision, nausea, vomiting, abdominal pain, fever, chills, back pain, or any other complaints. Prescriptions: New ondansetron 4 mg tablet,disintegrating 4 mg PO Q8H 3 Days Qty: 9 0RF No Action amoxicillin 500 mg tablet 500 mg PO Q12H Qty: 20 0RF ibuprofen 600 mg tablet 600 mg PO Q8H PRN (Reason: pain) Qty: 20 0RF ibuprofen 800 mg tablet 800 mg PO Q8H Qty: 30 0RF Referrals: [facility] [place]] (Call to establish and follow up with a primary care provider. If you already have a primary care provider, please follow up with them.) [facility] [[facility]] (Call to establish and follow up with a primary care provider. If you already have a primary care provider, please follow up with them.) [facility] [Provider Group] (Call to establish and follow up with a primary care provider. If you already have a primary care provider, please follow up with them.) Stand Alone Forms: Work/School Release Interventions: ED Discharge Assessment Last Done: 11/21/22 11:19 Discharge Date/Time: 11/21/22 11:19 Print Language: [place]
[2022-11-21 10:48] VITALS: BP 103/43; PULSE 85; RESP 18; O2SAT 100
== END 2022-11-21 11:19 | disposition home or self-care (01) ==
PROVIDERS: Emergency Provider Emergency Medicine Emergency Medical Services
DX: B34.9 Viral infection, unspecified (principal); R11.2 Nausea with vomiting, unspecified; Z20.822 Contact with and (suspected) exposure to COVID-19; Z20.828 Contact with and (suspected) exposure to other viral communicable diseases
CPT/HCPCS: 0241U; 80053; 81001; 81003; 84702; 85025; 87651; 96361; 96374; 99284; J2405

== ENCOUNTER 2023-10-21 17:57 | Emergency (ER) | payer OTHER, SELFPAY ==
--- NOTE | ~2023-10-21 | XR_ITS ---
EXAMINATION: XR HAND, LEFT CLINICAL INFORMATION: Middle finger pain and swelling. COMPARISON: None available. TECHNIQUE: PA, lateral, and oblique views of the left hand. FINDINGS: There is no fracture or dislocation. Joint spaces are maintained. The soft tissue overlying the third digit is mildly swollen. No radiopaque foreign object. XR/XR hand LT min 3V IMPRESSION: No fracture or dislocation. Mild soft tissue swelling. Electronically signed by: Kamar Schuster DO 10/21/2023 08:44 PM EDT
[2023-10-21 18:17] VITALS: BP 163/73; PULSE 86; RESP 14; TEMP 36.8; O2SAT 98; BMI 18.1
--- NOTE | 2023-10-21 19:38 | ED_ITS ---
HPI - Extremity Problem General Chief complaint: Extremity Injury, Upper Stated complaint: left figure swollen Time Seen by Provider: 10/21/23 18:23 Source: patient Mode of arrival: ambulatory Limitations: no limitations History of Present Illness ED Provider: Sandra Reyna PA-C HPI Narrative: 38-year-old female presents the ER for evaluation of left middle finger swelling and pain, along with a ring stuck on the fingers since last night. She reports last night around 02:00 she was trying to take her ring off when she accidentally banged her hand against the table. She states she woke up this morning in the finger was very swollen she was unable take the ring off. It has been getting worse since with her attempts to remove the ring. The finger is bruised. She denies any numbness or tingling but the pain is starting to radiate into the hand. MD Complaint: joint swelling and joint pain Onset (ago): hour(s) Pain Consistency: constant Location: left and upper extremity Quality: aching Radiation: proximal Relieving factors: nothing Exacerbating factors: palpation Associated symptoms: denies other symptoms Related Data Previous Rx's ?Medication ?Instructions ?Recorded amoxicillin 500 mg tablet 500 mg PO Q12H #20 tabs 06/16/20 ibuprofen 600 mg tablet 600 mg PO Q8H PRN pain #20 tabs 02/15/21 ibuprofen 800 mg tablet 800 mg PO Q8H #30 tabs 03/03/22 ondansetron 4 mg disintegrating 4 mg PO Q8H 3 days #9 tabs 11/21/22 tablet Allergies Allergy/AdvReac Type Severity Reaction Status Date / Time latex Allergy Intermediate Rash Verified 10/21/23 18:18 aloe Allergy Mild Hives Verified 10/21/23 18:18 Review of Systems Review of Systems: Yes all other systems are reviewed and are negative PMFSH Past Medical History Medical History COVID-19 Acute dysfunction of eustachian tube Cervical cancer Surgical History H/O tubal ligation Social History Social History Alcohol intake: current Alcohol intake frequency: holidays/special occasions only Substance Use Type: Marijuana Advance Directives: No Advance Directives Information Provided: Yes Do you have a plan to hurt others: No Plan Physical Exam Vital Signs: Vital Signs: Last Vital Signs Temp 98.3 F 10/21/23 20:07 Pulse 69 10/21/23 20:07 Resp 16 10/21/23 20:07 BP 119/41 L 10/21/23 20:07 Pulse Ox 100 10/21/23 20:07 O2 Del Method Room Air 10/21/23 20:07 BMI result Body Mass Index 18.1 Appearance: Alert. Oriented X3. No acute distress. HEENT: normal inspection CVS: Normal heart rate and rhythm. Pulses normal. Respiratory: No respiratory distress. Skin: Skin warm and dry. Normal skin color. Normal skin turgor. No rashes. Extremities: left middle finger with moderate swelling proximally with ecchymosis on the palmar aspect, limited flexion of the PIP. gold ring in place and unable to be removed. cap refill <3 sec Neuro: Oriented X 3. No motor deficit. No sensory deficit. Medical Decision Making Medical Decision Making MDM Narrative: 38-year-old female presents to the ER for evaluation of left middle finger swelling, bruising and pain with inability to remove the ring on the finger since he she injured it at 02:00 this morning. Ring rescue device was used to remove the ring successfully. X-ray does not show any acute fractures. She is able to range the finger but with some discomfort due to swelling and pain. Advised supportive care with rest, ice, elevation, NSAIDs as needed. Stable for discharge home with outpatient follow-up as needed. Differential Diagnosis Differential Diagnoses: The differential diagnosis associated with the presentation includes finger sprain, finger contusion, finger fracture, retained FB/ring Independent Interpretation I performed an independent interpretation of an: Plain X-Ray Interpretation: No acute finger fracture Radiology Impression Discussion of test interpretation with radiology: I have reviewed the radiologist's reading. External Record Review External record reviewed: Office record, Outpatient record and Prior outpatient labs Prescription Management I considered prescription management with: Pain Medication Procedures Foreign Body Removal Site: left and hand Description of foreign body: other (ring) Sedation/Analgesia: none Technique: manual removal and other (ring rescue machine used) Confirmed by:: direct visualization Complications: none Post-procedure exam: awake, alert Neurovascular: normal distal pulse, normal capillary fill and no change from pre-procedure Critical Care Time Critical Care Time Critical Care Time: No Discharge Plan Discharge Clinical Impression: Finger sprain Qualifiers: Encounter type: initial encounter Finger: middle finger Sprain of finger site: unspecified site Laterality: left Qualified Code(s): S63.613A - Unspecified sprain of left middle finger, initial encounter Patient Disposition: Home, Self-Care Instructions: Finger Sprain (ED) Additional Instructions: Your x-ray today showed no broken bones, just some mild soft tissue swelling Use ice several times per day for the next 48 hours. Take Motrin and/or Tylenol as needed for pain. Follow up with your doctor as needed. Prescriptions: No Action amoxicillin 500 mg tablet 500 mg PO Q12H Qty: 20 0RF ibuprofen 600 mg tablet 600 mg PO Q8H PRN (Reason: pain) Qty: 20 0RF ibuprofen 800 mg tablet 800 mg PO Q8H Qty: 30 0RF ondansetron 4 mg tablet,disintegrating 4 mg PO Q8H 3 Days Qty: 9 0RF Print Language: Dominican
[2023-10-21 20:07] VITALS: BP 119/41; PULSE 69; RESP 16; TEMP 36.8; O2SAT 100
[2023-10-21 20:58] VITALS: BP 112/41; PULSE 73; RESP 16; TEMP 36.7; O2SAT 100
== END 2023-10-21 20:58 | disposition home or self-care (01) ==
PROVIDERS: Emergency Provider Emergency Medicine
DX: S63.613A Unspecified sprain of left middle finger, initial encounter (principal); W22.8XXA Striking against or struck by other objects, initial encounter; Y93.89 Activity, other specified; Y92.009 Unspecified place in unspecified non-institutional (private) residence as the place of occurrence of the external cause; Y99.9 Unspecified external cause status
CPT/HCPCS: 73130; 99283